=== PATIENT | male | born 1990 | race African-American/Black ===

== ENCOUNTER → 2024-12-26 15:16 | Outpatient (BNVA) | payer OTHER, SELFPAY | PROVIDERS: Visit Provider Physician Assistant | DX: S80.02XA Contusion of left knee, initial encounter (principal); W18.09XA Striking against other object with subsequent fall, initial encounter | CPT/HCPCS: 73564; 99204 ==

== ENCOUNTER → 2024-12-28 13:21 | Outpatient (BNVA) | payer OTHER, SELFPAY | PROVIDERS: Visit Provider Physician Assistant | DX: S80.02XA Contusion of left knee, initial encounter (principal); W18.09XA Striking against other object with subsequent fall, initial encounter; Z02.79 Encounter for issue of other medical certificate | CPT/HCPCS: 99213 ==